=== PATIENT | female | born 1935 | race African-American/Black ===

== ENCOUNTER 2022-06-27 12:34 | Emergency (ER) | payer OTHER, BC ==
[~2022-06-27] VITALS: Ht 162.6 cm; Wt 73.5 kg
[~2022-06-27 12:34] MED LIST: ASPI81CT20 PO; CHOL200072 PO; GLIM2TAB PO; LATA7.5D OP; LISI-487 PO; METF-1253 PO; OLOP5DRO19 OP; OXYB5TAB44 PO; PRAV40TA3 PO
[2022-06-27 12:42] VITALS: BP 146/72
[2022-06-27] MEDS ORDERED: NACL 0.9% 1,000 ML IV ONE (13:00)
--- NOTE | 2022-06-27 13:24 | NUR ---
ASSUMED PATIENT CARE, NURSING ASSESSMENT COMPLETED. SEEN AND EVALUATED BY NATA JOHNSON COMPLETED.
[2022-06-27 13:56] LABS: ANION GAP 11.8 (8-16); CARBON DIOXIDE 28.9 mmol/L (21-32); CHLORIDE 100 mmol/L (98-107); CREATININE 1.2 mg/dL (0.6-1.3); EOSINOPHILS # (AUTO) 0.1 K/uL (0-0.4); EOSINOPHILS % (AUTO) 1.1 % (0.0-4.0); GLUCOSE 390 mg/dL (74-106); HEMOGLOBIN 11.5 g/dL (12.0-16.0); LYMPHOCYTES # (AUTO) 1.9 K/uL (2.5-16.5); LYMPHOCYTES % (AUTO) 37.1 % (20.5-51.1); MEAN CORPUSCULAR HEMOGLOBIN 27 pg (27-31); MEAN CORPUSCULAR HGB CONC 33 g/dL (33-37); MONOCYTES # (AUTO) 0.4 K/uL (0.8-1.0); MONOCYTES % (AUTO) 7.3 % (1.7-9.3); NEUTROPHILS # (AUTO) 2.8 K/uL (1.8-7.7); NEUTROPHILS % (AUTO) 53.5 % (42.2-75.2); PLATELET COUNT (AUTO) 313 K/uL (140-450); POTASSIUM 3.7 mmol/L (3.5-5.1); RED BLOOD CELL COUNT(AUTO) 4.21 MIL/uL (4.20-5.40); RED CELL DISTRIBUTION WIDTH 13.6 % (11.6-13.7); SODIUM SERUM 137 mmol/L (136-145); UREA NITROGEN, BLOOD 11 mg/dL (7-18); WHITE BLOOD COUNT (AUTO) 5.2 K/uL (4.8-10.8)
[2022-06-27 15:03] VITALS: BP 123/67
--- NOTE | 2022-06-27 15:03 | NUR ---
Patient discharged with v/s stable. Written and verbal after care instructions given and explained. Patient verbalized understanding. Ambulatory with steady gait. All questions addressed prior to discharge. Advised to follow up with PMD.
== END 2022-06-27 15:03 | disposition home or self-care (01) ==
LOC: MED 12:34
DX: R00.2 Palpitations (principal); E11.9 Type 2 diabetes mellitus without complications; I10 Essential (primary) hypertension; Z79.84 Long term (current) use of oral hypoglycemic drugs; Z79.899 Other long term (current) drug therapy
CPT/HCPCS: 36415; 71045; 80048; 84484; 85025; 85379; 96360; 99284; J7030